=== PATIENT | female | born 1980 | race Caucasian/White ===

== ENCOUNTER 2024-03-27 15:27 | Emergency (ER) | payer MEDICAID, OTHER ==
[~2024-03-27] VITALS: Ht 165.1 cm; Wt 55.0 kg
[2024-03-27 15:37] VITALS: O2SAT 98
[2024-03-27] MEDS: IBUPROFEN 600MG TABLET PO ONE (18:45)
[2024-03-27 20:15] VITALS: BP 97/47; PULSE 81; RESP 16; TEMP 36.89184; O2SAT 100
== END 2024-03-27 20:15 | disposition home or self-care (01) ==
LOC: ER 15:27
DX: M25.562 Pain in left knee (principal); M25.572 Pain in left ankle and joints of left foot; M54.50 Low back pain, unspecified; I10 Essential (primary) hypertension; W01.0XXA Fall on same level from slipping, tripping and stumbling without subsequent striking against object, initial encounter; Y93.89 Activity, other specified; Y92.89 Other specified places as the place of occurrence of the external cause; Y99.8 Other external cause status
CPT/HCPCS: 73562; 73610; 73630; 99284